=== PATIENT | female | born 1985 | race Caucasian/White ===

== ENCOUNTER 2024-03-21 19:50 | Emergency (ER) | payer OTHER, SELFPAY ==
[2024-03-21 19:58] VITALS: BP 184/104
--- NOTE | 2024-03-21 23:48 | ED.GENMED ---
History of Present Illness
General
Chief Complaint: Extremity Pain (non-traumatic)
Source: patient and spouse
Exam Limitations: none
Time Seen by Provider: 03/21/24 21:07
Nursing documentation reviewed up to this point in time: agreed with
History of Present Illness
History of Present Illness:
Patient is a 39-year-old female who presents to the emergency department with bilateral calf pain. Patient denies any chest pain or shortness of breath. Patient denies any history of PE or DVT. Patient denies any risk factors. Patient has been
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 Patient normally is very sedentary. Patient states that when she is walking the pain is greatest when she is going off her toes. Patient denies any direct injury. Patient denies
any fever or chills. Patient denies some numbness in her left great toe.
Past History
Past History
ED Past Medical History: HTN and Hypothyroidism
ED Past Surgical History: None
Social History
Tobacco: Non-smoker
Personal: Single
Living: with family
Employment: Employed
Review of Systems
Review of Systems
All Other Systems: Not applicable
Constitutional: Denies fever or chills
Respiratory: Denies trouble breathing
Cardiac: Denies chest pain
Musculoskeletal: Reports muscle pain; Denies neck pain or back pain
Skin: Denies rash
Neurological: Reports numbness (And left great toe)
Phy Exam
Physical Exam
Physical Exam:
Physical Exam
General: No apparent distress, alert and appropriate, well nourished, well hydrated
HENT: Normocephalic, supple
Eyes: Clear sclera, conjuctiva without injection
Heart: Regular rhythm and rate.
Lungs: No respiratory distress, no stridor, lung sounds clear and equal bilaterally
Neuro: Alert and oriented x 3, CN II - XII intact, no motor focality, no cerebellar dysfunction
Skin: no rash
Psychiatric: well kept. interactive and cooperative
Extremities: No edema, cyanosis. Good and equal peripheral pulses. Right calf with minimal tenderness in the distal right gastroc. Achilles is nontender. Left distal half of the gastroc is mild to moderately tender with
increasing on dorsiflexion of the foot.
Course
Orders/Labs/Results
Orders:
Orders
03/21/24 21:07
US Periph Venous LOWER Ext Pop Urgent
Comment:
Reason For Exam: pain and swelling
Vital Signs
Initial and Last Documented VS:
Initial Vital Signs
Temp Pulse Resp BP Pulse Ox
98.1 F 94 22 184/104 100
03/21/24 19:58 03/21/24 19:58 03/21/24 19:58 03/21/24 19:58 03/21/24 19:58
Last Documented Vital Signs
Temp Pulse Resp BP Pulse Ox
98.1 F 94 22 184/104 100
03/21/24 19:58 03/21/24 19:58 03/21/24 19:58 03/21/24 19:58 03/21/24 19:58
*Radiology
Radiology exam reviewed: radiology read reviewed (Ultrasound unremarkable)
*Pulse Oximetry
Patient hypoxic: no
*Critical Care Note
Total Time (30-74mins, 75-104mins- exclusive of procedures): Not Applicable
ED Attending Note
-
Portions of this chart may have been created with voice recognition software.� Occasional wrong word or��sound alike� substitutions may have occurred due to the inherent limitations of voice recognition software.
Discharge Plan
Departure
Patient Disposition: Home (Routine Discharge)
Date of Disposition: 03/21/24
Time of Disposition: 23:53
Patient with high blood pressure during this ER visit?: Yes
Condition: Good
Covid-19: Not Applicable
Discharge Problem:
Achilles tendinitis, left leg, Gastrocnemius muscle strain
Instructions: Achilles Tendinopathy (DC), Achilles Tendinopathy Exercises, Leg Muscle Strain ED, BLOOD PRESSURE
Prescriptions:
New
celecoxib [Celebrex] 200 mg capsule
200 mg PO BID Qty: 20 0RF
No Action
levothyroxine 100 MCG tablet
100 mcg PO DAILY
amlodipine 10 MG tablet
10 mg PO DAILY
norethindrone acetate [Aygestin] 5 MG tablet
5 mg PO DAILY Qty: 5 0RF
Referrals:
Alee Robert CRNP [Family Provider] - Follow up in 5-7 days
Interventions
Interventions:
*Risk Screen - Suicide Last Done: 03/21/24 19:58
*General Assessment Last Done: 03/21/24 22:22
*Neglect/Abuse Screening Last Done: 03/21/24 19:58
*ED COVID-19 Vaccine History Last Done: 03/21/24 22:23
ED-Musculoskeletal Assessment Last Done: 03/21/24 22:22
ED-Skin Assessment Last Done: 03/21/24 22:23
Discharge Date and Time
Print Language: [id number]
== END 2024-03-22 00:23 | disposition home or self-care (01) ==
LOC: EMR 19:50
PROVIDERS: EMERGENCY PHYSICIAN Emergency Medicine; FAMILY PHYSICIAN Nurse Practitioner Family
DX: S86.112A Strain of other muscle(s) and tendon(s) of posterior muscle group at lower leg level, left leg, initial encounter (principal); S86.111A Strain of other muscle(s) and tendon(s) of posterior muscle group at lower leg level, right leg, initial encounter; X58.XXXA Exposure to other specified factors, initial encounter; M76.62 Achilles tendinitis, left leg; R03.0 Elevated blood-pressure reading, without diagnosis of hypertension
CPT/HCPCS: 99284; 93970

== ENCOUNTER 2024-09-20 06:20 | Day surgery (SDC) | payer OTHER, SELFPAY ==
[2024-09-20 13:27] VITALS: BMI 60.8
[2024-09-20 13:29] VITALS: BMI 60.8
[2024-09-20 13:36] VITALS: BP 153/95
[2024-09-20 15:35] VITALS: BP 143/80
[2024-09-20 15:50] VITALS: BP 141/81
[2024-09-20 16:05] VITALS: BP 136/82
== END 2024-09-20 16:15 | disposition home or self-care (01) ==
LOC: SDS 06:20
PROVIDERS: ATTENDING PHYSICIAN Internal Medicine Gastroenterology
DX: D12.4 Benign neoplasm of descending colon (principal); D12.5 Benign neoplasm of sigmoid colon; D17.5 Benign lipomatous neoplasm of intra-abdominal organs; K57.30 Diverticulosis of large intestine without perforation or abscess without bleeding; K64.8 Other hemorrhoids; K64.4 Residual hemorrhoidal skin tags; A63.0 Anogenital (venereal) warts; K62.89 Other specified diseases of anus and rectum; R19.4 Change in bowel habit; R19.7 Diarrhea, unspecified; R12 Heartburn; R14.2 Eructation; K21.00 Gastro-esophageal reflux disease with esophagitis, without bleeding; K44.9 Diaphragmatic hernia without obstruction or gangrene
CPT/HCPCS: 45385; 45380; 43239; 88305; 88342